=== PATIENT | female | born 1995 | race Native Hawaiian/Other Pacific Islander ===

== ENCOUNTER 2017-11-30 13:24 | Outpatient (CLI) | payer BC | END 2017-11-30 20:56 | disposition home or self-care (01) | LOC: LAB 13:24 → RAD 13:24 | DX: R07.81 Pleurodynia (principal) ==

== ENCOUNTER 2017-12-02 21:09 | Emergency (ER) | payer BC ==
[~2017-12-02] VITALS: Ht 160 cm; Wt 65.8 kg
[2017-12-02 22:10] LABS: PLATELET COUNT 334 K/uL (152-353)
[2017-12-02 22:11] LABS: POTASSIUM 4.2 mmol/L (3.6-5.2)
[2017-12-03 01:20] VITALS: BP 107/64; TEMP 98.6
== END 2017-12-03 01:20 | disposition home or self-care (01) ==
LOC: ED 21:09
DX: N83.202 Unspecified ovarian cyst, left side (principal); K59.00 Constipation, unspecified
CPT/HCPCS: 36415; 80053; 81000; 85027; 96374; 99284; J1885; Q9963

== ENCOUNTER 2018-02-09 08:26 | Outpatient (CLI) | payer BC | END 2018-02-09 22:52 | disposition home or self-care (01) | LOC: MRI 08:26 | DX: R19.09 Other intra-abdominal and pelvic swelling, mass and lump (principal) | CPT/HCPCS: A9576 ==

== ENCOUNTER 2018-02-28 13:25 | Outpatient (CLI) | payer BC | END 2018-02-28 19:08 | disposition home or self-care (01) | LOC: MRI 13:25 | DX: R13.13 Dysphagia, pharyngeal phase (principal) | CPT/HCPCS: A9576 ==

== ENCOUNTER 2018-03-09 13:32 | Emergency (ER) | payer BC ==
[~2018-03-09] VITALS: Ht 160 cm; Wt 65.8 kg
[2018-03-09 15:50] VITALS: BP 100/55; TEMP 98
== END 2018-03-09 15:50 | disposition home or self-care (01) ==
LOC: ED 13:32
DX: F32.89 Other specified depressive episodes (principal); F41.8 Other specified anxiety disorders
CPT/HCPCS: 36415; 96372; 99283; J2060

== ENCOUNTER 2019-11-26 10:44 | Outpatient (CLI) | payer BC | END 2019-11-26 20:29 | disposition home or self-care (01) | LOC: RAD 10:44 | DX: M54.12 Radiculopathy, cervical region (principal) ==

== ENCOUNTER 2020-05-13 16:36 | Emergency (ER) | payer OTHER ==
[~2020-05-13] VITALS: Ht 160 cm; Wt 65.8 kg
[2020-05-13 16:43] VITALS: BP 122/85; TEMP 98.3
== END 2020-05-13 18:01 | disposition home or self-care (01) ==
LOC: ED 16:36
DX: T78.49XA Other allergy, initial encounter (principal)
CPT/HCPCS: 96372; 99282; J1020

== ENCOUNTER 2020-05-18 11:50 | Outpatient (CLI) | payer OTHER | END 2020-05-18 22:13 | disposition home or self-care (01) | LOC: RAD 11:50 | PROVIDERS: ATTEND Nurse Practitioner Family | DX: R05 Cough (principal) ==

== ENCOUNTER 2021-01-20 21:06 | Emergency (ER) | payer BC ==
[~2021-01-20] VITALS: Ht 162.6 cm; Wt 73.5 kg
[2021-01-20 22:01] VITALS: BP 123/78; TEMP 98.6
== END 2021-01-20 22:01 | disposition home or self-care (01) ==
LOC: ED 21:06
DX: T78.49XA Other allergy, initial encounter (principal); K21.9 Gastro-esophageal reflux disease without esophagitis; X58.XXXA Exposure to other specified factors, initial encounter; Y92.89 Other specified places as the place of occurrence of the external cause
CPT/HCPCS: 99281

== ENCOUNTER 2021-01-21 14:21 | Outpatient (CLI) | payer BC | END 2021-01-21 19:25 | disposition home or self-care (01) | LOC: RAD 14:21 | PROVIDERS: ATTEND Nurse Practitioner Family | DX: R05.8 Other specified cough (principal) ==

== ENCOUNTER 2021-03-03 11:48 | Outpatient (CLI) | payer BC | END 2021-03-03 21:25 | disposition home or self-care (01) | LOC: CT 11:48 | PROVIDERS: ATTEND Nurse Practitioner Primary Care | DX: R10.9 Unspecified abdominal pain (principal) ==

== ENCOUNTER 2021-06-04 09:36 | Outpatient (CLI) | payer BC | END 2021-06-04 20:51 | disposition home or self-care (01) | LOC: RAD 09:36 | PROVIDERS: ATTEND Nurse Practitioner Primary Care | DX: M54.6 Pain in thoracic spine (principal) ==